=== PATIENT | female | born 1955 | race Asian ===

== ENCOUNTER 2018-03-28 10:19 | Day surgery (SDC) | payer OTHER ==
[~2018-03-28] VITALS: Ht 149.9 cm; Wt 51.9 kg
[2018-03-28] MEDS ORDERED: SODIUM CHLORIDE 0.9% 1,000 ML IV SCH (10:39)
[2018-03-28] MEDS ORDERED: CEFAZOLIN PMX 1GM/50ML 50 ML ONE (11:00)
[2018-03-28] MEDS ORDERED: PLEASE ENTER ALLERGIES MC SCH (11:00)
[2018-03-28] MEDS ORDERED: PLEASE ENTER HEIGHT AND WEIGHT MC SCH (11:00)
[2018-03-28 11:17] VITALS: BP 129/85
[2018-03-28] MEDS ORDERED: CEFAZOLIN PMX 1GM/50ML 50 ML IV STA (11:20)
[2018-03-28] MEDS ORDERED: MIDAZOLAM 1 MG/ML, 5ML ONE (12:00)
[2018-03-28] MEDS ORDERED: FENTANYL PF 100 MCG/2ML ONE ×2 (12:00)
[2018-03-28] MEDS ORDERED: LIDOCAINE 2%, 20ML ONE (12:04)
== END 2018-03-28 15:15 ==
LOC: OUT 10:19
PROVIDERS: ATTEND Internal Medicine Hematology & Oncology
DX: Z45.2 Encounter for adjustment and management of vascular access device (principal); C50.412 Malignant neoplasm of upper-outer quadrant of left female breast; I10 Essential (primary) hypertension; E11.9 Type 2 diabetes mellitus without complications
CPT/HCPCS: 36561; 76937; 77001; 99156; 99157; C1788; C1894; J0690; J1642; J2250; J3010; J3490

== ENCOUNTER → 2018-06-15 | Outpatient (CLI) | payer OTHER | END | disposition home or self-care (01) | LOC: CFH 12:45 | PROVIDERS: ATTEND Internal Medicine Hematology & Oncology | DX: Z13.820 Encounter for screening for osteoporosis (principal); M85.80 Other specified disorders of bone density and structure, unspecified site; C50.412 Malignant neoplasm of upper-outer quadrant of left female breast; Z78.0 Asymptomatic menopausal state | CPT/HCPCS: 77080 ==

== ENCOUNTER 2018-06-21 07:30 | Day surgery (SDC) | payer OTHER ==
[~2018-06-21] VITALS: Ht 149.9 cm; Wt 52.3 kg
[2018-06-21 08:06] VITALS: BP 148/84
[2018-06-21] MEDS ORDERED: SODIUM CHLORIDE 0.9% 1,000 ML IV SCH (08:08)
[2018-06-21] MEDS ORDERED: FLUMAZENIL 0.1 MG/1 ML, 5ML ONE (09:01)
[2018-06-21] MEDS ORDERED: MIDAZOLAM 1 MG/ML, 5ML ONE (09:01)
[2018-06-21] MEDS ORDERED: FENTANYL PF 100 MCG/2ML ONE (09:01)
[2018-06-21] MEDS ORDERED: NALOXONE 1 MG/ML, 2ML ONE (09:01)
[2018-06-21] MEDS ORDERED: LIDOCAINE-MPF 2%, 2ML ONE (09:06)
== END 2018-06-21 10:57 | disposition home or self-care (01) ==
LOC: OUT 07:30
PROVIDERS: ATTEND Nurse Practitioner Family
DX: Z45.2 Encounter for adjustment and management of vascular access device (principal); C50.412 Malignant neoplasm of upper-outer quadrant of left female breast; D70.1 Agranulocytosis secondary to cancer chemotherapy; I10 Essential (primary) hypertension; F32.9 Major depressive disorder, single episode, unspecified; E78.00 Pure hypercholesterolemia, unspecified; Z98.51 Tubal ligation status; Z87.39 Personal history of other diseases of the musculoskeletal system and connective tissue; Z79.899 Other long term (current) drug therapy; Z98.890 Other specified postprocedural states; Z88.8 Allergy status to other drugs, medicaments and biological substances
CPT/HCPCS: 36590; 77001; 99156; 99157; J2250; J3010; J3490; J7030; J2310